=== PATIENT | female | born 1985 | race Caucasian/White ===

== ENCOUNTER 2016-11-26 15:58 | Outpatient (CLI) | payer MEDICAID ==
[~2016-11-26] VITALS: Ht 160 cm; Wt 82.0 kg
[~2016-11-26 15:58] MED LIST: ACET500C5 PO
[2016-11-26 16:22] VITALS: Ht 160 cm; Wt 82.0 kg
[2016-11-26 16:23] VITALS: BP 117/65; PULSE 65; RESP 20
--- NOTE | 2016-11-26 17:41 | RADRPT ---
PROCEDURE: US OB biophysical profile. CLINICAL INDICATION: decreased movements TECHNIQUE: Multiple sonographic images of the pelvis were obtained. The images were reviewed on a PACS workstation. COMPARISON: No prior studies are available for comparison. FINDINGS: There is a single viable intrauterine gestation. Cardiac activity is present with 118 beats per min brianna. There is a breech presentation. The placenta is left lateral. There is no evidence of placental abruption. There is a decreased amount of amniotic fluid with an LORNE = 7.0 cm. Biophysical profile: movement 2/2 tone 2/2. breathing 2/2 LORNE 2/2 Total 06/26 RPTAT: AA . IMPRESSION: Normal biophysical profile. Mild oligohydramnios. . .Arturo Whitley MD, Date Time Electronically viewed and signed by .Arturo Whitley MD, MD on 11/26/2016 17:40 .S/
[2016-11-27] MEDS ORDERED: METF-480 PO (11:15)
== END 2016-11-26 17:59 | disposition home or self-care (01) ==
LOC: L-D 15:58 → OBT 15:58
PROVIDERS: ATTEND Obstetrics & Gynecology
DX: O76 Abnormality in fetal heart rate and rhythm complicating labor and delivery (principal); O36.8130 Decreased fetal movements, third trimester, not applicable or unspecified; Z3A.00 Weeks of gestation of pregnancy not specified
CPT/HCPCS: 76818; Z7500; G0463

== ENCOUNTER 2016-11-27 10:57 | Outpatient (CLI) | payer MEDICAID ==
--- NOTE | 2016-11-26 22:14 | QN ---
Documentation Comment 31 years old with IUP at 37 weeks and 3 by her WARREN with care with Dr. Delgado presented for NST/ BPP due to GDM A2 .Denies any LOF, vaginal bleeding or uterine contractions. She denies any other symptoms. She had an audible decelerations in NST clinic 2 days ago, was seen by DR. Hammer, had LORNE that was 8.8. She was referred for repeat NST/ BPP . WARREN: 12/14/2016 GA: A&O, NAD Abdomen: Soft, non tender, Gravid. Fundal height appropriate for GA Extremities;: no calf tenderness, no edema NST: Cat 1 LORNE: 7.4 BPP: 8/8 Assessment GDM IUP at 37 weeks and 3 by her WARREN History of section Borderline low LORNE NST/ BPP reassuring RTC in tomorrow after hydration for repeat LORNE Follow up in 11/28 as scheduled with NST clinic if LORNE normal in repeat study tomorrow EMERSON OCASIO MD Nov 26, 2016 22:14
[~2016-11-27] VITALS: Ht 157.5 cm; Wt 81.2 kg
[2016-11-27 11:13] VITALS: Ht 157.5 cm; Wt 81.2 kg
[2016-11-27] MEDS ORDERED: METF-480 PO (11:15)
--- NOTE | 2016-11-27 11:49 | RADRPT ---
PROCEDURE: US OB biophysical profile. CLINICAL INDICATION: decreased movements, low LORNE TECHNIQUE: Multiple sonographic images of the pelvis were obtained. The images were reviewed on a PACS workstation. COMPARISON: 11/26/16 FINDINGS: There is a single viable intrauterine gestation. Cardiac activity is present with 131 beats per min brianna. There is a breech presentation. The placenta is left lateral. There is no evidence of placental abruption. There is a decreased amount of amniotic fluid with an LORNE = 5.9 cm. Biophysical profile: movement 2/2 tone 2/2. breathing 2/2 LORNE 2/2 Total 06/26 RPTAT: AA . IMPRESSION: Normal biophysical profile. Oligohydramnios, slightly worsened. . .Arturo Whitley MD, MD Date Time Electronically viewed and signed by .Arturo Whitley MD, MD on 11/27/2016 11:49 .S/
[2016-11-27] MEDS ORDERED: LACTATED RINGER'S 1,000 ML IV SCH (12:00)
--- NOTE | 2016-11-27 16:26 | RADRPT ---
PROCEDURE: US OB. CLINICAL INDICATION: Low LORNE , pain TECHNIQUE: Transabdominal views of the pelvis are available for review. COMPARISON: 11/26/16 FINDINGS: There is a single intrauterine gestation in a breech position. The heart rate is present at 148 bpm. The placenta is fundal left lateral. The LORNE measures 7.3 cm. RPTAT: AA IMPRESSION: Decreased LORNE. .Arturo Whitley MD, MD Date Time Electronically viewed and signed by .Arturo Whitley MD, on 11/27/2016 16:25 .S/
--- NOTE | 2016-11-27 17:27 | ERD ---
DATE OF SERVICE: 11/27/2016 The patient is an 31-year-old at 37 weeks for an LORNE check. The patient's LORNE is 7.9. The patient is doing well. No complaints. Category 1 tracing. Vital signs stable. The patient will be discha rged home to follow up in 2 days for repeat LORNE. An appointment was given. The patient was stable at the time of discharge. Dictated By: CHELLE MISHRA MD /MAKSIM Conf#: [id number] DID#: [id number]
--- NOTE | 2016-11-27 17:58 | TRIAGE ---
OB Triage Datetime Report Generated by CPN: 11/27/2016 17:58 Datetime: 11/27/2016 17:56 Time of Arrival: 11/27/2016 10:53 EGA: 37.4 Arrived By: Ambulatory Arrived From: Home Chief Complaint: FOLLOW UP LOW LORNE, DENIES UC'S, BLEEDING OR LEAKING OF FLUID Movement: Present Contractions: Denies/Absent Rupture of Membranes: Denies Vaginal Discharge: Denies Recent Sexual Intercouse: Denies Abdominal Trauma: Not Applicable Patient Complaints: None Time Provider Notified: 11/27/2016 11:55 Provider Notified: NATE Initial Plan: MONITOR, BPP/LORNE Datetime: 11/27/2016 17:03 Stage of : OB Triage Datetime: 11/27/2016 17:02 Labor Evaluation Frequency: IRREG Monitor Mode: External Duration (sec)2399: 50-70 Quality: Mild Pattern: Normal: <= 5 Contractions in 10 Minutes Resting Tone Royal: Relaxed Heart Rate FHR Baseline Rate: 135 Monitor Mode: External US Variability: Moderate 6-25 bpm Accelerations: 10X10 Decelerations: None Category: Category I Pain Assessment Pain Scale: 0 Pain Presence: None/Denies Pain Type: N/A Pain Goal: 3 Pain Relief Measures: Comfort Measures Datetime: 11/27/2016 16:01 Labor Evaluation Frequency: 0 Monitor Mode: External Pattern: Normal: <= 5 Contractions in 10 Minutes Resting Tone Royal: Relaxed Heart Rate FHR Baseline Rate: 135 Monitor Mode: External US Variability: Moderate 6-25 bpm Decelerations: None Category: Category I Pain Assessment Pain Scale: 0 Pain Presence: None/Denies Pain Type: N/A Pain Goal: 3 Pain Relief Measures: Comfort Measures Datetime: 11/27/2016 14:59 Labor Evaluation Frequency: 0 Monitor Mode: External Pattern: Normal: <= 5 Contractions in 10 Minutes Resting Tone Royal: Relaxed Heart Rate FHR Baseline Rate: 135 Monitor Mode: External US Variability: Moderate 6-25 bpm Accelerations: 10X10 Decelerations: None Category: Category I Pain Assessment Pain Scale: 0 Pain Presence: None/Denies Pain Type: N/A Pain Goal: 3 Pain Relief Measures: Comfort Measures Datetime: 11/27/2016 13:17 Labor Evaluation Frequency: 0 Monitor Mode: External Resting Tone Royal: Relaxed Heart Rate FHR Baseline Rate: 135 Monitor Mode: External US Variability: Moderate 6-25 bpm Decelerations: None Category: Category I Pain Assessment Pain Scale: 0 Pain Presence: None/Denies Pain Type: N/A Pain Goal: 3 Pain Relief Measures: Comfort Measures Datetime: 11/27/2016 12:12 Labor Evaluation Frequency: 5-6 Monitor Mode: External Duration (sec)2399: 30-50 Quality: Mild Pattern: Normal: <= 5 Contractions in 10 Minutes Resting Tone Royal: Relaxed Heart Rate FHR Baseline Rate: 130 Monitor Mode: External US Variability: Moderate 6-25 bpm Decelerations: None Category: Category I Pain Assessment Pain Scale: 1 Pain Presence: Intermittent Pain Type: Cramping Pain Location: Abdomen Pain Goal: 3 Pain Relief Measures: Comfort Measures Datetime: 11/27/2016 11:54 Stage of : OB Triage Datetime: 11/27/2016 11:10 Stage of : OB Triage Assessment Type: Triage Maternal Assessment Level of Consciousness: Fully Conscious DTR's/Clonus: DTRs 2+; No Clonus Headache: Denies Blurred Vision: No Respiratory Effort: Unlabored; Regular Rhythm; Equal Expansion Breath Sounds, Left: Clear and Equal Breath Sounds, Right: Clear and Equal Nausea/Vomiting: Denies RUQ Epigastric Pain: Denies Lower Extremities Edema: None Degree: None Upper Extremities Edema: None Degree: None Facial Edema: None Temperature Route: Axillary Fall Risk Assessment History of Falling: (0) No Secondary Diagnosis: (0) No Ambulatory Aid: (0) Bedrest/Nurse Assist IV Therapy: (0) No Gait: (0) Normal/Bedrest/Immobile Labor Evaluation Frequency: 0 Monitor Mode: External Pattern: Normal: <= 5 Contractions in 10 Minutes Resting Tone Royal: Relaxed Heart Rate FHR Baseline Rate: 135 Monitor Mode: External US Variability: Moderate 6-25 bpm Decelerations: None Category: Category I Pain Assessment Pain Scale: 0 Pain Presence: None/Denies Pain Type: N/A Pain Goal: 3 Pain Relief Measures: Comfort Measures Datetime: 11/26/2016 17:54 Time of Arrival: 11/27/2016 10:53 EGA: 37.4 Arrived By: Ambulatory Arrived From: Home Chief Complaint: FOLLOW UP LOW LORNE, DENIES UC'S, BLEEDING OR LEAKING OF FLUID Movement: Present Contractions: Denies/Absent Rupture of Membranes: Denies Vaginal Bleeding: None Vaginal Discharge: Denies Recent Sexual Intercouse: Denies Abdominal Trauma: Not Applicable Patient Complaints: None Time Provider Notified: 11/27/2016 11:55 Provider Notified: NATE Initial Plan: MONITOR, BPP/LORNE Datetime: 11/26/2016 16:25 Labor Evaluation Frequency: q 6-7 Monitor Mode: External Duration (sec)2399: 60 Quality: Mild Pattern: Normal: <= 5 Contractions in 10 Minutes Resting Tone Royal: Relaxed Datetime: 11/26/2016 16:17 Time of Arrival: 11/26/2016 16:00 EGA: 37.3 Arrived By: Ambulatory Arrived From: Home Chief Complaint: AUDIBLE DECELERATION IN NST CLINIC ON SUNDAY Movement: Present Contractions: Denies/Absent Rupture of Membranes: Denies Vaginal Bleeding: None Vaginal Discharge: Denies Recent Sexual Intercouse: Denies Abdominal Trauma: Not Applicable Patient Complaints: None Provider Notified: DR OCASIO Initial Plan: EFM,CALL LABORIST NST,BPP Datetime: 11/26/2016 16:16 Maternal Assessment Level of Consciousness: Fully Conscious Maternal Assessment Level of Consciousness: Fully Conscious DTR's/Clonus: DTRs 2+ DTR's/Clonus: DTRs 2+; No Clonus Headache: Denies Headache: Denies Blurred Vision: No Blurred Vision: No Respiratory Effort: Unlabored; Regular Rhythm; Equal Expansion Breath Sounds, Left: Clear and Equal Breath Sounds, Right: Clear and Equal Nausea/Vomiting: Denies Nausea/Vomiting: Denies RUQ Epigastric Pain: Denies RUQ Epigastric Pain: Denies Facial Edema: None Facial Edema: None Temperature Route: Axillary Fall Risk Assessment History of Falling: (0) No Secondary Diagnosis: (0) No Ambulatory Aid: (0) Bedrest/Nurse Assist IV Therapy: (0) No Gait: (0) Normal/Bedrest/Immobile Mental Status: (0) Oriented to Own Ability Fall Score: 0 Fall Risk Score Definition: No Risk: No action required Labor Evaluation Frequency: NONE AT THIS TIME Pattern: Normal: <= 5 Contractions in 10 Minutes Heart Rate FHR Baseline Rate: 130 Monitor Mode: External US FHR Baseline Changes: No Baseline Change Variability: Moderate 6-25 bpm Accelerations: 15X15 Decelerations: None Category: Category I Pain Assessment Pain Scale: 2 Pain Presence: Intermittent Pain Type: Cramping Pain Location: Abdomen Pain Goal: 5 Vaginal Exam Membrane Status: Intact
== END 2016-11-27 17:20 | disposition home or self-care (01) ==
LOC: OBT 10:57 → L-D 10:57 → OBT 17:20
PROVIDERS: ATTEND Obstetrics & Gynecology
DX: O24.419 Gestational diabetes mellitus in pregnancy, unspecified control (principal); O36.8130 Decreased fetal movements, third trimester, not applicable or unspecified; O41.03X0 Oligohydramnios, third trimester, not applicable or unspecified; Z3A.37 37 weeks gestation of pregnancy
CPT/HCPCS: 36415; 76816; 76818; 96360; 96361; J7120; Z7500; G0463

== ENCOUNTER 2016-11-30 08:55 | Inpatient (IN) | payer MEDICAID ==
[~2016-11-30] VITALS: Ht 157.5 cm; Wt 80.1 kg
[~2016-11-30 08:55] MED LIST changes: -ACET500C5 PO; +METF-480 PO
[2016-11-30 09:20] VITALS: BP 112/66; PULSE 65; RESP 18
[2016-11-30 09:22] VITALS: Ht 157.5 cm; Wt 80.1 kg
[2016-11-30] MEDS ORDERED: PREN1TAB13 PO (09:25)
[2016-11-30] MEDS ORDERED: MISOPROSTOL 200 MCG TAB PR PRN ×2 (10:30→21:00)
[2016-11-30] MEDS ORDERED: OXYTOCIN 30 UNITS/LR 500 ML IV PRN ×2 (10:30→21:00)
[2016-11-30] MEDS ORDERED: CARBOPROST 250 MCG INJ IM PRN ×2 (10:30→21:00)
[2016-11-30] MEDS ORDERED: CEFAZOLIN 2 GM/50 ML (PMX) 50 ML IV SCH (10:30)
[2016-11-30] MEDS ORDERED: OXYTOCIN 30 UNITS/LR 500 ML IV SCH (10:30)
[2016-11-30] MEDS ORDERED: METHYLERGONOVINE 0.2 MG INJ IM PRN ×2 (10:30→21:00)
[2016-11-30 11:28] LABS: BASOPHILS % 0.4 % (0.0-2.0); EOSINOPHILS # 0.1 10^3/ul (0.0-0.5); EOSINOPHILS % 0.7 % (0.0-7.0); HEMATOCRIT 36.1 % (37.0-47.0); HEMOGLOBIN 12.4 g/dl (12.0-16.0); LYMPHOCYTES # 1.8 10^3/ul (0.8-2.9); LYMPHOCYTES % 18.5 % (15.0-51.0); MEAN CORPUSCULAR HEMOGLOBIN 31.9 pg (29.0-33.0); MEAN CORPUSCULAR HGB CONC 34.3 g/dl (32.0-37.0); MEAN CORPUSCULAR VOLUME 92.8 fl (82.0-101.0); MEAN PLATELET VOLUME 9.2 fl (7.4-10.4); MONOCYTE # 0.6 10^3/ul (0.3-0.9); MONOCYTES % 6.2 % (0.0-11.0); NEUTROPHIL # 7.1 10^3/ul (1.6-7.5); NEUTROPHILS % 74.2 % (39.0-77.0); PLATELET COUNT 192 10^3/UL (140-440); RED BLOOD COUNT 3.89 10^6/ul (4.20-5.40); RED CELL DISTRIBUTION WIDTH 13.3 % (11.5-14.5); UNCORRECTED WBC 9.5 10^3/ul (4.8-10.8); WHITE BLOOD COUNT 9.5 10^3/ul (4.8-10.8)
[2016-11-30 11:32] LABS: CONDITION 1
[2016-11-30] MEDS: LACTATED RINGER'S 1,000 ML IV SCH ×3 (11:36→20:46)
[2016-11-30 11:37] LABS: INR 0.95; PROTIME 12.7 Sec (12.2-14.2)
[2016-11-30 11:38] LABS: PARTIAL THROMBOPLASTIN TIME 29.3 Sec (25.0-35.0)
[2016-11-30] MEDS ORDERED: morphine SULFATE/PF (10 MG/10 ML) INJ ONE (17:07)
[2016-11-30] MEDS ORDERED: FENTAnyl 50 MCG/ML VIAL ONE (17:07)
[2016-11-30] MEDS ORDERED: PHENYLephrine (100 MCG/ML) 5ML SYG ONE (17:07)
--- NOTE | 2016-11-30 17:09 | HP ---
Date/Time of Note Date/Time of Note DATE: 11/30/16 TIME: 17:08 OB - History Hx of Present Free Text/Dictation with 2 c/s in labor Care: Good Care Ultrasounds: Normal mid trimester US Obstetrical Complications: None Medical Complications: None Past Family/Social History * Past Medical, Surgical, Family and Obstetric Histories reviewed from chart. OB Admission Exam Vital Signs Vital Signs Vital Signs Date Time Temp Pulse Resp B/P Pulse Ox O2 Delivery O2 Flow Rate FiO2 11/30/16 09:20 98.1 65 18 112/66 Room Air Physical Exam HEENT: WNL Heart: Rhythm Normal Lungs: Clear, Equal Abdomen: WNL Extremities: Normal Reflexes: Normal Cervical Dilatation: 1cm Last 72 hourBlood Glucose Bedside Glucose - 72 Hours Test 11/30/16 09:39 11/30/16 15:37 Bedside Glucose 95mg/dL (70-220) 79mg/dL (70-220) Last 72 hours Lab Results CBC & BMP 11/30/16 11:10 OB Assessment/Plan Reason for admission: active labor Plan: Section FELICE SULLIVAN MD Nov 30, 2016 17:09
--- NOTE | 2016-11-30 17:11 | OPR ---
Operative Report Planned Procedure Procedure date Nov 30, 2016 Performed by: FELICE SULLIVAN MD Assisting provider: GUILLERMO COBB MD Anesthesia Type: spinal Procedure Description Under satisfactory [spinal] anesthesia, the patient was prepped and draped and placed in a supine position, tilted to the left. Pfannenstiel incision was made , carried through the subcutaneous tissue. Bleeders brought under control with electrocautery. Fascia incised to the length of the incision. Rectus muscles from the fascia, divided midline. Peritoneum exposed, entered through a transverse incision. Exploration of abdomen revealed gravid uterus. Bladder flap was developed. Transverse incision was made in the lower segment of the uterus. Amniotic sac ruptured. [] amniotic fluid noted. [] Nasal oropharyngeal suction was performed. The baby was handed to the team for immediate attention. The placenta was delivered manually intact. Uterine cavity was cleaned with wet sponge and drainage established. Uterus closed in 2 layers using one monocryl [] in continuous fashion.the right and left tube were ligated using o plain tie and cut and cauthorized. Peritoneal cavity irrigated with warm saline. Sponge, needle and instrument count reported to be correct. Fascia closed with [], and skin closed with sadie. Estimated blood [id number] [] mL. Post-Procedure Findings: Live Baby [], Apgars [] and [], weight [], position [], [] presentation []cord. Specimen removed: Yes Complications: None Pt Condition post procedure: stable Disposition: PACU Physician Certification I, the undersigned physician, hereby certify that I have discussed the procedure described in this consent form with this patient (or the patient's legal indirect sales representative), including: * The risk and benefits of the procedure; * Any adverse reactions that may reasonably be expected to occur; * Any alternative efficacious methods of treatment which may be medically viable ; * The potential problems that may occur during recuperation; * Potential for blood transfusion and associated risks/benefits; and * Any research or economic interest I may have regarding this treatment. I further certify that the patient/legally responsible person was encouraged to ask question and that all questions were answered. FELICE SULLIVAN MD Nov 30, 2016 17:11
[2016-11-30] MEDS ORDERED: ONDANSETRON 4 MG INJ ONE (17:28)
[2016-11-30] MEDS ORDERED: DEXAMETHASONE 4 MG/ML 1 ML INJ ONE (17:28)
[2016-11-30] MEDS ORDERED: PROCHLORPERAZINE 10 MG INJ IV PRN (18:30)
[2016-11-30] MEDS ORDERED: HYDROmorphONE 1 MG/ML SYG IV PRN ×2 (18:30)
[2016-11-30] MEDS ORDERED: NALOXONE (0.4 MG/ML) INJ IV PRN (18:30)
[2016-11-30] MEDS ORDERED: DIPHENHYDRAMINE 50 MG INJ IV PRN (18:30)
[2016-11-30] MEDS ORDERED: KETOROLAC 30 MG INJ IV PRN (18:30)
[2016-11-30] MEDS ORDERED: ONDANSETRON 4 MG INJ IV PRN (18:30)
[2016-11-30] MEDS ORDERED: ZOLPIDEM 5 MG TAB PO PRN (18:30)
--- NOTE | 2016-11-30 20:18 | OPRPT ---
Intraop Record Datetime Report Generated by CPN: 11/30/2016 20:18 Datetime: 11/30/2016 19:19 Sequential Compression Device: Yes Datetime: 11/30/2016 11:50 OR Number: 2 TIMES/PROCEDURE Arrive OR: 11/30/2016 17:05 Depart OR: 11/30/2016 18:06 Anesthesia Start: 11/30/2016 17:05 Anesthesia End: 11/30/2016 18:15 Surgery Start: 11/30/2016 17:35 Surgery End: 11/30/2016 18:00 Preoperative Dx: REPEAT SECTION WITH BTL Surgical Procedure: Section with BTL Postoperative Dx: S/P REPEAT SECTION WITH BTL C/S Decision Time: 11/30/2016 11:30 C/S Decision to Incision (min): 365 Uterine Incision: 11/30/2016 17:36 PERSONNEL Surgeon: Rainer Delgadoub: Mery Elliott Anesthesia Care Provider: Rocky Masterson Care: See Delivery Summary for Infant Care Providers Others in OR: FOB Anesthesia Type: Spinal ASA Level: II RISK FOR INJURY Mode of Arrival: [place] Procedure Time Out: Correct Patient Identity; Accurate Procedure Consent Form; Agreement on Procedu re to be Done; Correct Patient Position; Relevant Images and Results are Properly Labeled and Displa yed; Addressed Need to Administer Antibiotics or Fluids for Irrigation; Safety Precautions Based on Patient History or Medication Use; Allergies Reviewed Preoperative Information: Preoperative Checklist Reviewed; Allergies Reviewed; NPO Status Verified RISK FOR ANXIETY/KNOW DEFICIT Emotional Status: Calm/Relaxed Interventions: Provided Education Based on Age and Identified Needs; Communicated Patient Concerns to Appropriate Members of the Health Care Team; Explained Sequence of Events and Perioperative Routi ne; Evaluated Response to Instructions RISK FOR PAIN Pain Teaching: Instructed on Pain Scale Pain Scale: 9.0 PREOPERATIVE OUTCOMES Preoperative Outcomes: Verbalizes/Indicates Decreased Anxiety, Ability to [place], Understanding of Pr ocedure and Sequence of Events. Questions Answered; Demonstrates Adequate Pain Management; Verbaliz es Comfort Related to Transfer/Transport RISK FOR INFECTION Skin Pre-Operative Site: Intact Clip: Clip Clip Location: CLOSED LEG ABDOMEN Prep: Yes Prep By: FMike WHITLOCK Prep Solution: Chlorohexadine Other Prep: SHELLY WIPES Catheter: Ortiz Catheter Size: 16 Catheter Inserted By: FMike WHITLOCK Surgical Wound Class: BE-[id number]-Ebumuzekzwbv Drain Type/Size: N/A Dressing Type: Secured Gauze Risk for Impaired Skin Integrity Position in OR: Supine Bony Prominences Protection: Arms Tucked/Padded Positioning Devices: N/A Risk for Hypothermia Warming Interventions: N/A Risk for Injury Safety Straps Applied: Legs Sequential Compression Device: Yes Electrosurgical Unit: Yes Electrosurgical Unit Number: [id number] EXP. 2018-08-08 Bipolar Number: [id number] Ground Pad Location: Right Anterior Thigh Coag Number: 55 Cut Number: 55 1st Count Sponge Count: Correct Needle Count: Correct Blade Count: Correct Instrument Count: Correct 2nd Count Sponge Count: Correct Needle Count: Correct Blade Count: Correct Instrument Count: Correct 3rd Count Sponge Count: Correct Needle Count: Correct Blade Count: Correct Instrument Count: Correct Final Count Sponge Count 4: Correct Needle Count 4: Correct Blade Count 4: Correct Instrument Count 4: Correct Surgeon Acknowledged Count: Yes Final Count Resolution: Count Correct Intraoperative Data Equipment: Non-Invasive Blood Pressure; Pulse Oximeter; EKG Blood Products Given: N/A Implants/Prosthesis Implants/Prosthesis: N/A Grafts: N/A Irrigation Irrigants: NACL; Sterile H2O Irrigation Amount: 2000 Specimens Specimens: N/A Specimen Type: Fallopian Tubes Disposition: RIGHT-PATHOLOGY Specimen Type: Fallopian Tubes Disposition: LEFT- PATHOLOGY Cultures Cultures: N/A X-Ray X-Ray Taken: No Postoperative Skin: Warm Pain Scale: 0 Condition: Awake; Alert Temperature: 98.1 Operative Outcomes: Patient's Surgery Performed Using Aseptic Technique and in a Manner to Prevent Cross-Contamination; Skin Remains Smooth, Intact, Non-reddened, Non-irritated, Free of Bruising; Cor e Body Temperature Remains in Expected Range Transfer To: L_D Datetime: 11/26/2016 16:17 Food Allergies/Reactions: NONE Latex Allergies/Reactions: No Latex Allergies Datetime: 09/19/2016 00:23 Drug Allergies/Reactions: No Known Drug Allergy (06/12/2014)
--- NOTE | 2016-11-30 20:18 | DELSUM ---
Delivery Summary A-C Datetime Report Generated by CPN: 11/30/2016 20:18 DELIVERY PERSONNEL Personalization Specialist: Dexter Galeano MATERNAL INFORMATION Delivery Anesthesia: Spinal Medications in Delivery: SEE ANESTHESIA RECORD Estimated Blood Loss (ml): 800 Placenta Cultured: No Maternal Complications: Other Other Maternal Complications: A2DM ON METFORMIN 800 MG PO AT HS LABOR SUMMARY EDC: 12/14/2016 00:00 No. Babies in Womb: 1 Attempted: No Labor Anesthesia: None LABOR INFORMATION Reason for Induction: Not Applicable Onset of Labor: 11/30/2016 07:00 Oxytocin: N/A Group B Beta Strep: Negative Antibiotics # of Doses: ANCEF 2 GMS IVPB X 1 Antibiotics Time of Last Dose: ANCEF AT 1720 Steroids Given: None Reason Steroids Not Administered: Not Applicable MEMBRANES Membranes Rupture Method: Artificial Rupture of Membranes: 11/30/2016 17:36 Length of Rupture (hr): 0.00 Amniotic Fluid Color: Clear Amniotic Fluid Amount: Moderate Amniotic Fluid Odor: None STAGES OF LABOR Stage 3 hr: 0 Stage 3 min: 0 Total Time in Labor hr: 10 Total Time in Labor min: 36 CSECTION DELIVERY Primary Indication: Repeat Elective Secondary Indication: Repeat Elective CSection Urgency: Elective CSection Incidence: Repeat Labor: Labor Elective: Nonelective CSection Incision: Lower Uterine Transverse Sterilization Procedure: Anna BABY A INFORMATION Delivery Date/Time: 11/30/2016 17:36 Method of Delivery: Born in Route : No : N/A Forceps: N/A Vacuum Extraction: N/A Shoulder Dystocia : N/A SHOULDER DYSTOCIA BABY A Delivery Date/Time: 11/30/2016 17:36 PRESENTATION/POSITION BABY A Presentation: Breech Cephalic Presentation: N/A Breech Presentation: Uday PLACENTA INFORMATION BABY A Placenta Delivery Time : 11/30/2016 17:36 Placenta Method of Delivery: Manual Removal Placenta Status: Delivered SCORES BABY A Heart Rate 1 min: >100 bpm Resp Effort 1 min: Good Cry Reflex Irritability 1 min: Cough/Sneeze/Pulls Away Muscle Tone 1 min: Active Motion Color 1 min: Body [place], Extremit Blue Resuscitation Effort 1 min: Tactile Stimulation SCORE 1 MIN: 9 Heart Rate 5 min: >100 bpm Resp Effort 5 min: Good Cry Reflex Irritability 5 min: Cough/Sneeze/Pulls Away Muscle Tone 5 min: Active Motion Color 5 min: Body [place], Extremit Blue Resuscitation Effort 5 min: N/A SCORE 5 MIN: 9 INFANT INFORMATION BABY A Gestational Age at Delivery: 38.0 Gestational Status: Early Term- 37- 38.6 Weeks Infant Outcome : Liveborn Infant Condition : Stable Infant Sex: Female IDENTIFICATION/MEDS BABY A ID Band Number: [id number] ID Band Location: Right Leg; Left Arm Sensor Applied: Yes Sensor Number: [id number] Sensor Location : Cord Clamp Vitamin K Given : Not Given Erythromycin Given: Not Given WEIGHT/LENGTH BABY A Infant Birthweight (gm): 2630 Infant Weight (lb): 5 Weight (oz): 13 Infant Length (in): 18.50 Infant Length (cm): 46.99 CORD INFORMATION BABY A No. Cord Vessels: 3 Nuchal Cord : N/A Cord Blood Taken: Yes Infant Suction: Mouth; Nose ASSESSMENT BABY A Infant Complications: None Physical Findings at Delivery: Within Normal Limits Physical Findings- Other: LONG CORD; BABY PASSED STOOL Respirations: Appears Normal Hunter Guide/ALS Called : No Care By: Filomena Keen RN; Valerie Shepherd RT Transferred To: Remains with Mother
[2016-11-30 20:30] VITALS: BP 113/76; PULSE 64; RESP 18
[2016-11-30] MEDS: OXYTOCIN 30 UNITS/LR 500 ML IV SCH ×2 (20:46→23:57)
[2016-11-30] MEDS ORDERED: NA PHOSPHATE/BIPHOS 133 ML ENEMA PR PRN (21:00)
[2016-11-30] MEDS ORDERED: LANOLIN 7 GM TUBE TOP PRN (21:00)
[2016-11-30] MEDS ORDERED: OXYCODONE/ACETAMINOPHEN (5/325) TAB PO PRN (21:00)
[2016-11-30] MEDS ORDERED: ACETAMINOPHEN/CODEINE #3 TAB PO PRN (21:00)
[2016-11-30] MEDS ORDERED: NACL 0.9% 3 ML SYG IV SCH (21:00)
[2016-11-30] MEDS: IBUPROFEN 800 MG TAB PO SCH (22:00)
[2016-12-01 00:30] VITALS: BP 119/69; PULSE 67; RESP 18
[2016-12-01] MEDS: LACTATED RINGER'S 1,000 ML IV SCH ×3 (03:57→20:46)
[2016-12-01 04:00] VITALS: BP 112/65; PULSE 74; RESP 16
[2016-12-01] MEDS: IBUPROFEN 800 MG TAB PO SCH ×3 (06:00→21:58)
[2016-12-01 07:33] LABS: BASOPHILS % 0.1 % (0.0-2.0); EOSINOPHILS % 0.1 % (0.0-7.0); HEMATOCRIT 25.2 % (37.0-47.0); HEMOGLOBIN 8.9 g/dl (12.0-16.0); LYMPHOCYTES # 1.6 10^3/ul (0.8-2.9); MEAN CORPUSCULAR HEMOGLOBIN 32.8 pg (29.0-33.0); MEAN CORPUSCULAR HGB CONC 35.4 g/dl (32.0-37.0); MEAN CORPUSCULAR VOLUME 92.7 fl (82.0-101.0); MEAN PLATELET VOLUME 9.4 fl (7.4-10.4); MONOCYTE # 0.7 10^3/ul (0.3-0.9); MONOCYTES % 6.6 % (0.0-11.0); NEUTROPHIL # 8.2 10^3/ul (1.6-7.5); NEUTROPHILS % 78.2 % (39.0-77.0); PLATELET COUNT 153 10^3/UL (140-440); RED BLOOD COUNT 2.71 10^6/ul (4.20-5.40); UNCORRECTED WBC 10.5 10^3/ul (4.8-10.8); WHITE BLOOD COUNT 10.5 10^3/ul (4.8-10.8)
[2016-12-01 08:00] VITALS: BP 102/59; PULSE 84; RESP 18
[2016-12-01 08:00] LABS: CONDITION 1
[2016-12-01 12:40] VITALS: BP 109/66; PULSE 82; RESP 18
--- NOTE | 2016-12-01 16:00 | QN ---
Documentation Comment doing well vss abd soft incision c&d cpm FELICE SULLIVAN MD Dec 01, 2016 16:00
[2016-12-01 16:01] VITALS: BP 107/57; PULSE 82; RESP 20
[2016-12-01 20:00] VITALS: BP 132/38; PULSE 83; RESP 18
[2016-12-02 04:10] VITALS: BP 100/56; PULSE 72; RESP 17
[2016-12-02] MEDS: IBUPROFEN 800 MG TAB PO SCH ×3 (06:05→21:54)
[2016-12-02 07:20] VITALS: BP 103/63; PULSE 72; RESP 18
[2016-12-02 08:06] LABS: BASOPHILS % 0.2 % (0.0-2.0); EOSINOPHILS # 0.1 10^3/ul (0.0-0.5); EOSINOPHILS % 0.6 % (0.0-7.0); HEMATOCRIT 23.8 % (37.0-47.0); HEMOGLOBIN 8.4 g/dl (12.0-16.0); LYMPHOCYTES # 1.6 10^3/ul (0.8-2.9); LYMPHOCYTES % 16.3 % (15.0-51.0); MEAN CORPUSCULAR HEMOGLOBIN 32.9 pg (29.0-33.0); MEAN CORPUSCULAR HGB CONC 35.1 g/dl (32.0-37.0); MEAN CORPUSCULAR VOLUME 93.6 fl (82.0-101.0); MONOCYTE # 0.6 10^3/ul (0.3-0.9); MONOCYTES % 5.7 % (0.0-11.0); NEUTROPHIL # 7.6 10^3/ul (1.6-7.5); NEUTROPHILS % 77.2 % (39.0-77.0); PLATELET COUNT 165 10^3/UL (140-440); RED BLOOD COUNT 2.54 10^6/ul (4.20-5.40); RED CELL DISTRIBUTION WIDTH 13.5 % (11.5-14.5); UNCORRECTED WBC 9.8 10^3/ul (4.8-10.8); WHITE BLOOD COUNT 9.8 10^3/ul (4.8-10.8)
[2016-12-02 08:15] LABS: CONDITION 1
--- NOTE | 2016-12-02 12:26 | QN ---
Documentation Comment POD#2 Pt doing well and w/o c/o. Ambulating w/o difficulty. Voiding spontaneously, tolerating POs w/o N/V, +flatus, no stool. and formula feeding infant. Pain c/w pain meds. Normal vaginal bleeding O: VS 98.5 100/56 72 17 Gen: well appearing, NAD, feeding bottle to CV: RRR, nl s1s2 Resp: CTAB Abd: soft, min TTP, ND, NABS, FF 2FB below umbilicus Inc: C/D/I w/steristrips BLE: no edema or TTP Hgb 8.4 from 8.9 yesterday and 12.4 pre-op, EBL 700ml A/P: POD#2 s/p RLTCS and BTL at 38wks in the setting of labor -Pt progressing towards postop goals. Ambulation TID today and continue routine postop care -HD stable. Consider d/c with Iron and Colace given anemia -Likely d/c home tomorrow on POD#3 CLINTON DEWEY MD Dec 02, 2016 12:26
[2016-12-02 16:00] VITALS: BP 101/57; PULSE 81; RESP 18
[2016-12-02 19:50] VITALS: BP 110/63; PULSE 78; RESP 17
[2016-12-03 04:00] VITALS: BP 99/59; PULSE 75; RESP 17
[2016-12-03] MEDS: IBUPROFEN 800 MG TAB PO SCH ×3 (05:31→21:29)
[2016-12-03 08:00] VITALS: BP 110/58; PULSE 74; RESP 18
[2016-12-03] MEDS ORDERED: MEASLES,MUMPS,RUBELLA VACCINE INJ SC* ONE (09:00)
[2016-12-03] MEDS ORDERED: DIPHTH/TET/ACEL PERTUSS (ADULT) 0.5 ML VIAL IM* ONE (09:00)
--- NOTE | 2016-12-03 13:07 | PN ---
Date/Time of Note Date/Time of Note DATE: 12/03/16 TIME: 13:07 OB Subjective Subjective Subjective POD#3 is stable afebrile tolerated diet No VB +BM +Voids No sign of depression VS stable Gen NAD Abd soft NT ND Incision intact Genitalia No blood at perinium --->Discharge plan --->Ambulation KRZYSZTOF FORD M.D. Dec 03, 2016 13:07
[2016-12-03 15:50] VITALS: BP 119/65; RESP 18
[2016-12-03 16:00] VITALS: BP 119/65; PULSE 89; RESP 18
[2016-12-03 19:35] VITALS: BP 115/71; PULSE 84; RESP 18
[2016-12-04 03:45] VITALS: BP 121/67; PULSE 75; RESP 18
[2016-12-04] MEDS: IBUPROFEN 800 MG TAB PO SCH (05:21)
--- NOTE | 2016-12-04 08:16 | DS ---
Date/Time of Note Date/Time of Note DATE: 12/04/16 TIME: 08:15 Discharge Summary Admission/Discharge Info Admit Date/Time Nov 30, 2016 at 10:43 Discharge Date/Time Final Diagnosis term preg Hospital Course unremarkable Home Meds Discontinued Reported Medications Pnv95/Ferrous Fumarate/FA ( Vitamins Tablet) 1 Each Tablet, 1 EACH PO, TAB 11/30/16 Metformin* (Glucophage*) 850 Mg Tablet, 850 MG PO WITH BREAKFAST, #30 TAB 11/27/16 Discontinued Scripts Acetaminophen* (Tylophen*) 500 Mg Capsule, 1 CAP PO Q6H Y for PAIN AND OR ELEVATED TEMP, #20 CAP Prov:GISELA OBREGON PA-C 06/29/16 FELICE SULLIVAN MD Dec 04, 2016 08:16
[2016-12-04 09:55] VITALS: BP 116/54; PULSE 77; RESP 16
--- NOTE | 2016-12-04 20:35 | NSTRPT ---
NST Information Datetime Report Generated by CPN: 12/04/2016 20:35 Datetime: 11/29/2016 10:31 NST Information EGA: 37.6 Test Number: 5 Time on Monitor: 11/29/2016 10:56 Time off Monitor: 11/29/2016 11:33 NST Duration (Min): 37 Reason for NST: Diabetes Mellitus; Other Reason for NST Other: A2DM Test and Monitor Explained: Monitor Explained; Test Explained; Verbalized Understanding; Breastfee ding Info Given Pulse: 64 Resp: 18 SBP: 109 DBP: 74 Test Evaluation NST Interventions: None Patient States Movement: Present Contraction Frequency: NONE FHR Baseline : 130 Variability: Moderate 6-25bpm Accelerations: 15X15 FHR Category: Category I NST Results: Reactive Comments: PT TO U/S. LORNE 8.1cm. BREECH. FBS 85. 1135-Pt home undelivered with LABOR precautions. F ollow up NST appointment given. kick count Instructions reviewed. Pt states understanding. No furhter questions asked at this time. Electronically Signed By E-Signature: with User ID: [id number] Datetime: 11/28/2016 08:32 NST Information EGA: 37.5 NST Duration (Min): 20
== END 2016-12-04 12:04 | disposition home or self-care (01) | DRG 766 ==
LOC: OBT 08:55 → L-D 08:56 → OBT 10:42 → L-D 10:43 → MS1 13:56 → L-D 14:02 → PP1 20:25
PROVIDERS: ADMIT Obstetrics & Gynecology; ATTEND Obstetrics & Gynecology
PROC: 10D00Z1 Extraction of Products of Conception, Low, Open Approach (ICD-10-PCS; principal; 2016-11-30)
PROC: 0UL70ZZ Occlusion of Bilateral Fallopian Tubes, Open Approach (ICD-10-PCS; 2016-11-30)
PROC: 3E00X4Z Introduction of Serum, Toxoid and Vaccine into Skin and Mucous Membranes, External Approach (ICD-10-PCS; 2016-12-03)
DX: O24.429 Gestational diabetes mellitus in childbirth, unspecified control (principal); O34.211 Maternal care for low transverse scar from previous cesarean delivery; Z30.2 Encounter for sterilization; Z23 Encounter for immunization; Z3A.38 38 weeks gestation of pregnancy; Z37.0 Single live birth
CPT/HCPCS: 36415; 82947; 82962; 85025; 85610; 85730; 86592; 86850; 86900; 86901; 86920; 87340; 88302; 90715; 94760; 99464; G0463; J0690; J1100; J1200; J1885; J2274; J2370; J2405; J2590; J3010; J7120